=== PATIENT | female | born 2000 | race Caucasian/White ===

== ENCOUNTER 2020-04-08 21:01 | Emergency (ER) | payer OTHER ==
[~2020-04-08] VITALS: Ht 167.6 cm; Wt 60.8 kg
== END 2020-04-08 23:57 | disposition home or self-care (01) ==
LOC: ER 21:01
DX: S50.02XA Contusion of left elbow, initial encounter (principal); W18.09XA Striking against other object with subsequent fall, initial encounter; Y93.89 Activity, other specified; Y92.69 Other specified industrial and construction area as the place of occurrence of the external cause; Y99.8 Other external cause status